=== PATIENT | female | born 1965 | race Hispanic/Latino ===

== ENCOUNTER 2020-10-17 16:54 | Emergency (ER) | payer SELFPAY ==
[~2020-10-17] VITALS: Ht 149.9 cm; Wt 128.6 kg
[2020-10-17] MEDS ORDERED: LISINOPRIL30 MG (18:36)
[2020-10-17] MEDS ORDERED: KETOROLAC TROMETHAMINE 60 MG/2 ML VIAL IM ONE (18:45)
== END 2020-10-17 19:06 | disposition home or self-care (01) ==
LOC: FSED 18:40
DX: M25.561 Pain in right knee (principal); I10 Essential (primary) hypertension; E66.9 Obesity, unspecified
CPT/HCPCS: 96372; 99282; J1885